=== PATIENT | female | born 1955 | race Caucasian/White ===

== ENCOUNTER → 2016-06-21 | Outpatient (CLI) | payer BC ==
--- NOTE | 2016-06-22 13:03 | MAMMOGRAPHY REPORT ---
BILATERAL DIGITAL SCREENING MAMMOGRAM WITH CAD: 06/21/2016 CLINICAL HISTORY: Routine screening examination. TECHNIQUE: Bilateral CC and MLO views were obtained. Current study was also evaluated with a Comput er Aided Detection (CAD) system. COMPARISON: Comparison is made to exams dated: 06/19/2015 mammogram, 06/13/2013 mammogram, 06/18/2014 mammogram, 06/12/2012 mammogram, 06/08/2011 mammogram, and 06/16/2010 mammogram - [facility]. BREAST COMPOSITION: The tissue of both breasts is almost entirely fatty. FINDINGS: A 3 mm mass in the medial right breast has decreased in size compared to the 2014 mammogra m, confirming benignity. No new suspicious mass, architectural distortion or cluster of microcalcif ications is seen. IMPRESSION: ACR BI-RADS CATEGORY 1: NEGATIVE There is no mammographic evidence of malignancy. A 1 year screening mammogram is recommended. The p atient will receive written notification of the results. Approximately 10% of breast cancers are not detected with mammography. A negative mammographic repor t should not delay biopsy if a clinically suggestive mass is present. Cecy Cherry M.D. ay/:06/21/2016 15:33:02 Hull Molder: Audra COVINGTON(James)(M), [facility] letter sent: Normal 1/2 BI-RADS Code: ACR BI-RADS Category 1: Negative
== END | disposition home or self-care (01) ==
LOC: C.MAMM 11:31
PROVIDERS: ATTEND Obstetrics & Gynecology
DX: Z12.31 Encounter for screening mammogram for malignant neoplasm of breast (principal)

== ENCOUNTER → 2016-06-30 | Outpatient (CLI) | payer BC | END | disposition home or self-care (01) | LOC: C.PAPS 09:52 | PROVIDERS: ATTEND Obstetrics & Gynecology | DX: Z01.419 Encounter for gynecological examination (general) (routine) without abnormal findings (principal) ==

== ENCOUNTER → 2017-06-23 | Outpatient (CLI) | payer OTHER ==
--- NOTE | 2017-06-24 14:44 | MAMMOGRAPHY REPORT ---
BILATERAL DIGITAL SCREENING MAMMOGRAM TOMOSYNTHESIS WITH CAD: 06/23/2017 CLINICAL HISTORY: Routine screening. Patient has no complaints. TECHNIQUE: Breast tomosynthesis in addition to standard 2D mammography was performed. Current study was also evaluated with a Computer Aided Detection (CAD) system. COMPARISON: Comparison is made to exams dated: 06/21/2016 mammogram, 06/19/2015 mammogram, 06/18/2014 m ammogram, 06/13/2013 mammogram, 06/12/2012 mammogram, and 06/08/2011 mammogram - [facility] nter. BREAST COMPOSITION: The tissue of both breasts is almost entirely fatty. FINDINGS: There is possible slow interval increase in size of right axillary lymph nodes, visible on the MLO views. The most inferior lymph node in the superior posterior right breast currently measur es 10 x 9 mm, and measured 6 x 8 mm on a prior mammogram from 2008. Although these slight difference s could be technical or due to positioning, further characterization with targeted bilateral axillary ultrasound is recommended. There is stable nodularity in the medial right breast. No other suspicious mass, architectural disto rtion or cluster of microcalcifications is seen. IMPRESSION: ACR BI-RADS CATEGORY 0: INCOMPLETE EVALUATION: NEED ADDITIONAL IMAGING EVALUATION The possible slow interval increase in size of bilateral axillary lymph nodes needs additional imagi ng evaluation. The patient will be called to schedule an appointment. Approximately 10% of breast cancers are not detected with mammography. A negative mammographic report should not delay biopsy if a clinically suggestive mass is present. Cecy Cherry M.D. ay/:06/23/2017 15:56:31 Service Transformer Rep[employer] Supervisor: Audra Hsieh, [facility] letter sent: Addl Imaging 0 BI-RADS Code: ACR BI-RADS Category 0: Incomplete Evaluation: Need Additional Imaging Evaluation
== END | disposition home or self-care (01) ==
LOC: C.MAMM 11:21
PROVIDERS: ATTEND Obstetrics & Gynecology
DX: Z12.31 Encounter for screening mammogram for malignant neoplasm of breast (principal)

== ENCOUNTER → 2017-06-28 | Outpatient (CLI) | payer OTHER ==
--- NOTE | 2017-06-28 15:15 | MAMMOGRAPHY REPORT ---
ULTRASOUND OF BOTH BREASTS: 06/28/2017 CLINICAL HISTORY: 62-year-old woman called back from screening for increasingly prominent bilateral a xillary lymph nodes. No known autoimmune disease, leukemia, lymphoma or other abnormal lymph node pr ocess. COMPARISON: Comparison is made to exams dated: 06/23/2017 mammogram, 06/21/2016 mammogram, 06/19/2015 m ammogram, 06/18/2014 mammogram, 06/13/2013 mammogram, and 06/12/2012 mammogram - [facility] enter. FINDINGS: Targeted ultrasound was performed in the right and left axilla to assess for the increasin gly prominent axillary lymph nodes seen on recent screening mammogram. Several plump lymph nodes are identified in the right and left axilla, that have mildly thickened cortices measuring up to 4 mm. Given the abnormal morphology these lymph nodes are indeterminate and ultrasound-guided fine-needle a spiration and/or core needle biopsy is recommended for further characterization. IMPRESSION: ACR BI-RADS CATEGORY 4: SUSPICIOUS - FOLLOW-UP RECOMMENDED 1. There are increasingly prominent bilateral axillary lymph nodes with mildly thickened cortices on ultrasound. Definitive characterization of 1 community health program representative lymph node with ultrasound-guided core biopsy and/or fine-needle aspiration is recommended. These results and recommendations were discussed with the patient at the time of the exam. She tenta tively scheduled the lymph node biopsy prior to leaving our department. Cecy Cherry M.D. ay/:06/28/2017 08:42:08 Supervising Architect: Alyx FORTUNE)(Tressa), [facility] letter sent: Abnormal 4/5 BI-RADS Code: ACR BI-RADS Category 4: Suspicious
== END | disposition home or self-care (01) ==
LOC: C.MAMM 08:12
PROVIDERS: ATTEND Obstetrics & Gynecology
DX: R92.8 Other abnormal and inconclusive findings on diagnostic imaging of breast (principal); N64.89 Other specified disorders of breast

== ENCOUNTER → 2017-07-06 | Outpatient (CLI) | payer OTHER ==
--- NOTE | 2017-07-06 10:40 | Discharge Instructions ---
Discharge Instructions Procedure Procedure Date: Jul 06, 2017. Reason for visit: Right Lymph Node Axilla. Discharge Discharge Date: Jul 06, 2017. Discharge Diagnosis: status post lymph node biopsy Instructions Activity Recommendations: Additional Limitations (see below) Return to School/Work: no limitations Recommended Home Diet: No Limitations Provider Instructions: ACTIVITY RECOMMENDATIONS: * No lifting, pushing, pulling or exercising the affected side for three days. RETURN TO SCHOOL/WORK: * You may return to work/school after the procedure, but do not perform any strenuous activities for 24 to 48 hours. MEDICATIONS: * Tylenol (two 325 mg) every four to six hours if needed for mild pain (if not allergic to Tylenol). DIET: * Resume previous diet. SPECIAL CARE INSTRUCTIONS: * Keep biopsy site dry for 24 hours. May shower after 24 hours, but do not soak (bathe) incision. * May remove Tegaderm (plastic patch) tomorrow AFTER showering. * Leave the steri-strips on for one week. Allow the steri-strips to fall off by themselves. If not off after one week, you may remove them. You may place a Bandaid crosswise over the strips, if desired. * Apply ice 10 minutes on and 10 minutes off as needed. * Wear a bra at bedtime to sleep more comfortably for 2-3 days. * Your referring physician should have the results after approximately 5 to 7 business days. * Call for unusual bleeding, fever, drainage, etc or if you have any questions call during normal business hours or after hours call Dr Lan, . FOLLOW UP VISIT: Follow-up with Referring Physician as scheduled. Allergies Coded Allergies: No Known Allergies (Verified , 03/09/16) Ap [place] Recommendations: Call your doctor if: * Temperature above 101 degrees * Pain not relieved by pain medicine ordered * There is increased drainage or redness from any incision * You have any unanswered questions or concerns. Your Doctors Instructions noted above were prepared by provider Charlene Lan. Patient Signature Section: Patient Instructions Signature Page Amina Dany Patient (or Guardian) Signature/Date: I have read and understand the instructions given to me by my caregivers. Caregiver/RN/Doctor Signature/Date: The above-named patient and/or guardian has received patient instructions on this date. + Original Patient Signature Page (only) stays with chart. Please make copy for patient.
--- NOTE | 2017-07-07 08:00 | MAMMOGRAPHY REPORT ---
ULTRASOUND GUIDED BIOPSY RIGHT BREAST: 07/06/2017 CLINICAL HISTORY: Prominent bilateral axillary lymph nodes. PATIENT CONSENT: The procedure, risks and benefits were discussed with the patient and informed writt en consent was obtained. A timeout was performed immediately prior to the procedure. PROCEDURE DESCRIPTION: With ultrasound guidance, aseptic technique, and lidocaine as the local anesth etic (1% lidocaine to anesthetize the skin and 1% lidocaine with epinephrine to anesthetize the deepe r tissues), one of the prominent right axillary lymph nodes was sampled 6 times with a 14-gauge Achie ve biopsy needle. Immediately thereafter, with ultrasound guidance, aseptic technique, and lidocaine as the local anesthetic, a metallic localizer clip was placed within the lymph node. Direct pressur e was applied to the site immediately post procedure and hemostasis was achieved. The patient tolera perla the procedure without complication. She was given wound care instructions. The specimens were se nt on a saline soaked Telfa pad STAT to pathology for analysis. COMPARISON: Comparison is made to exams dated: 06/28/2017 ultrasound, 06/21/2016 mammogram, 06/19/2015 mammogram, 06/18/2014 mammogram, and 06/23/2017 mammogram - [facility]. IMPRESSION: ULTRASOUND GUIDED BIOPSY Ultrasound-guided core needle biopsy of one of the prominent right axillary lymph nodes, with clip pl acement. The patient will receive pathology results from her referring provider. Charlene Lan M.D. /:07/06/2017 10:42:45 [place]paca Farmer: Charles COVINGTON(R)(M), [facility]
== END | disposition home or self-care (01) ==
LOC: C.MAMM 09:47
PROVIDERS: ATTEND Obstetrics & Gynecology
DX: R59.9 Enlarged lymph nodes, unspecified (principal)